=== PATIENT | female | born 1950 | race Hispanic/Latino ===

== ENCOUNTER 2018-09-30 10:29 | Outpatient (CLI) | payer MEDICARE, MEDICAID | END 2018-09-30 10:30 | disposition home or self-care (01) | LOC: C.MAMMO 10:29 | DX: Z12.31 Encounter for screening mammogram for malignant neoplasm of breast (principal); R92.2 Inconclusive mammogram; Z85.3 Personal history of malignant neoplasm of breast ==

== ENCOUNTER 2018-10-20 11:28 | Outpatient (CLI) | payer MEDICARE, MEDICAID | END 2018-10-20 11:29 | disposition home or self-care (01) | LOC: C.MAMMO 11:28 | DX: R92.8 Other abnormal and inconclusive findings on diagnostic imaging of breast (principal) ==